=== PATIENT | female | born 1950 | race Caucasian/White ===

== ENCOUNTER 2023-11-24 08:03 | Inpatient (IN) | payer MEDICARE, SELFPAY ==
[2023-11-12 10:49] VITALS: BMI 27.4
[2023-11-12 11:59] LABS: % Basophils 0.6 % (0-2); % Eosinophils 2.2 % (0-6); % Immature Granulocytes 0.4 % (0-0.5); % Lymphocytes 22.6 % (20.5-51.1); % Monocytes 13.8 % (1.7-9.3); % Neutrophils 60.4 % (42.2-75.2); Absolute Eosinophils 0.2 10^3/uL (0-0.7); Absolute Lymphocytes 1.6 10^3/uL (1.2-3.4); Absolute Neutrophils 4.3 10^3/uL (1.4-6.5); Hematocrit 37.7 % (37.0-47.0); Hemoglobin 12.5 g/dL (12.0-16.0); Mean Corp Hgb Conc. 33.2 g/dL (33.0-37.0); Mean Corpuscular Hgb 24.7 pg (27.0-31.0); Mean Corpuscular Volume 74.5 fL (81.0-99.0); Mean Platelet Volume 10.3 fL (7.4-10.4); Nucleated Red Blood Cells % 0 %; Platelet Count 177 10^3/uL (130-400); Red Blood Cell Count 5.06 10^6/uL (4.20-5.40); Red Cell Dist. Width 17.2 % (11.5-14.5); White Blood Cell Count 7.2 10^3/uL (4.8-10.8)
[2023-11-12 12:09] LABS: INR 1.41; PT 17.3 Sec (11.4-14.6)
[2023-11-12 12:10] LABS: ALT (SGPT) 40 U/L (0-35); AST (SGOT) 49 U/L (14-36); Albumin 4.7 g/dl (3.5-5.0); Alkaline Phosphatase 71 U/L (38-126); Blood Urea Nitrogen 12 mg/dl (7-17); Calcium 9.8 mg/dl (8.4-10.2); Carbon Dioxide 26 mmol/L (22-30); Chloride 102 mmol/L (98-107); Estimated Creatinine Clearance 82 ml/min; Glucose 118 mg/dl (70-99); Potassium 4.1 mmol/L (3.5-5.1); Sodium 136 mmol/L (135-145); Total Bilirubin 0.6 mg/dl (0.2-1.3); Total Protein 7.4 g/dl (6.3-8.2); eGFR > 60.00
[2023-11-24] VITALS (12 sets, daily range): BP systolic 96–142; BP diastolic 54–110; BMI 29.3
[2023-11-24 11:22] LABS: ACT-LR - POC 285 Seconds (116-155)
[2023-11-24 11:32] LABS: Glucose - Point of Care 106 mg/dl (70-99)
[2023-11-24 11:46] LABS: ACT-LR - POC 281 Seconds (116-155)
--- NOTE | 2023-11-24 12:42 | WATCHMAN.MD ---
Addendum entered and electronically signed by Ron Morgan MD 11/24/23 17:20:
Note, a 31 mm device was used and placed, not a 24 mm device.
Original Note:
Watchman Implant
-
WATCHMAN LEFT ATRIAL APPENDAGE CLOSURE DEVICE REPORT
Date: November 24, 2023
Referring Litigation Docket Manager: Dr Boone Gonzalez
Primary Care Provider: Dr Steven Oates
History:
She has a history of paroxysmal atrial fibrillation, coronary angiography 03/04 showing no obstructive coronary disease and normal LV function, asymptomatic PVCs, type 2 diabetes mellitus, hyperlipidemia, benign essential hypertension,
arteriosclerosis of aorta, osteopenia, microcytic anemia, previously described tachycardia which she believes is supraventricular tachycardia, benign tremor, atypical chest discomfort, previously detected lung nodules.
She has an iron deficiency anemia for which she follows with hematology. Her hemoglobin has been as low as 8.5 with suspected GI source. Previous endoscopy, colonoscopy and capsule endoscopy procedure, which did not reveal any obvious causes. She
has significant hemorrhoids and has had hemorrhoidal bleeding previously. As well as rectal prolapse. She has required packed red blood cell transfusions on 2 occasions over the past 2 years. She tells me that her staff interpreter feels the likely
source of her recurrent bleeding is internal hemorrhoids.
Shared decision making for today's procedure involved the patient's referring hot wire glass tube cutter, Dr Gonzalez, the patient and her as well as myself and the rest of the Watchman team.
Watchman Team:
KIRAN: Camden Guan M.D.
Transseptal builder operator: Dr Radha Khan M.D.
Implanter: Dr Ron Morgan M.D.
Procedure: Watchman left atrial appendage closure.
The patient was placed under general anesthesia by anesthesia.
A KIRAN probe was placed.
A 10 Fr sheath was placed in the left femoral vein for ICE.
16 Fr sheath was placed via the right femoral vein to allow access for the watchman sheath
Heparin was administered to goal ACT 300-400 seconds. Fluid bolus was given.
Intracardiac ultrasound catheter was placed in the right atrium identifying the intraatrial septum for transseptal puncture.
Transseptal puncture was performed By Dr Khan. This entailed advancing a sheath with dilator into the superior vena cava and withdrawing both (monitoring intracardiac ultrasound, fluoroscopy and tip pressure) with the tip oriented toward the
atrial septum. The fossa ovalis was engaged (indicated by sudden displacement of the sheath tip as well as tenting of the fossa seen on intracardiac ultrasound). Left atrial access required a pass with the Brocken[place]rough needle extended. Left
atrial catheter position was confirmed by pressure monitoring as well as fluoroscopy. The sheath was advanced over the dilator and positioned in the left atrium.
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
There is no clear angiographic evidence of connection between those [address] Ron Morgan positioned and deployed the Watchman device.
The 14 Sammarinese watchman access system sheath double curve was substituted for the transeptal sheath. A 5 Sammarinese curved pigtail was then substituted for the guidewire through the watchman sheath to the ostium of the left atrial appendage. The 5
Sammarinese pigtail was advanced into the left atrial appendage and angiography was performed. This allowed additional measurements assessing left atrial appendage ostium size and ALCIRA morphology.
The pigtail catheter was removed from the access sheath. A 31 mm Watchman device was flushed and then placed into the watchman access sheath and advanced through the sheath. The Watchman was clamped into the sheath. The device was deployed into
the left atrial appendage.
The PASS criteria were met. The stability tug test was performed and passed. Angiography and transesophageal echocardiogram revealed no leaks nor jets. The position was confirmed on angiography and transesophageal echo and there were no
significant shoulders. Compression ranges from 15 % to 21 %.
After meeting the PASS release criteria the device was released into the left atrial appendage.
The watchman access sheath was then removed through the transseptal into the IVC. A figure 8 suture closure was performed at the site of the femoral venous puncture and the sheath as it was removed.
Impression:
Transeptal puncture by Dr Dr Khan.
SUCCESSFUL DEPLOYMENT OF 24 mm WATCHMAN LEFT ATRIAL APPENDAGE CLOSURE DEVICE by Dr Ron Morgan.
Recommended anticoagulation strategy for this specific patient is:
Full strength DOAC Eliquis 5 mg twice daily + 81 mg asa for 45 days followed by DAPT to complete 6 months, then asa 81 mg daily
Transesophageal echocardiogram at 6 weeks post procedure will be used to assess for any device related thrombus, assess for any leaks, and aid in the decision making regarding altering anticoagulation/antiplatelet recommendations.
At post procedure KIRAN leaks > 5mm are significant and require chronic full anticoagulation or consideration for leak closure. Sharmaine-device leaks between 3 and 5 mm may also carry an increased risk. These patients will need individualized risk
assessment and discussion with Watchman team. Leaks < 3 mm are generally considered non-significant. With leak of any size suggestion is to check KIRAN 12 mo out from implant.
Continue cardiovascular care with Dr. Gonzalez
cc:
Dr Boone Gonzalez
Dr Steven Oates
[2023-11-24] MEDS: ANESTHETIC LOZENGE 1 LOZENGE PO (14:25)
--- NOTE | 2023-11-24 14:35 | W.PN.UPDATE ---
Update Note
Progress Note Update
72 yo WF s/p Watchman device implant (same day). She has mild sore throat, no cp, sob, khari diet, voiding, amb w/o dizziness, b/l groins c/d/i no HT< soft, EKG SR. She will continue OAC Eliquis with addition of ASA 81mg daily. Hold Metformin 48 hours
post procedure. She will have f/u KIRAN in 45 days. ACtivity restrictions reviewed. She is for d/c home after 315pm.
Impression:
Transeptal puncture by Dr Dr Khan.
SUCCESSFUL DEPLOYMENT OF 24 mm WATCHMAN LEFT ATRIAL APPENDAGE CLOSURE DEVICE by Dr Ron Morgan.
Recommended anticoagulation strategy for this specific patient is:
Full strength DOAC Eliquis 5 mg twice daily + 81 mg asa for� 45 days followed by DAPT to complete 6 months, then asa 81 mg daily
Transesophageal echocardiogram at 6 weeks post procedure will be used to assess for any device related thrombus, assess for any leaks, and aid in the decision making regarding altering anticoagulation/antiplatelet recommendations.
At post procedure KIRAN leaks > 5mm are significant and require chronic full anticoagulation or consideration for leak closure.� Sharmaine-device leaks between 3 and 5 mm may also carry an increased risk. These patients will need individualized risk
assessment and discussion with Watchman team. Leaks < 3 mm are generally considered non-significant. With leak of any size suggestion is to check KIRAN 12 mo out from implant.
Continue cardiovascular care with Dr. Gonzalez
--- NOTE | 2023-11-26 14:23 | W.DS.TRANS ---
DC Summary - Gluing Machine Operator Electronic
-
Discharge Instructions:
Discharge Diagnosis/Procedures Watchman device implant
Diet Low Cholesterol,Diabetic, Carb Controlled
Driving Restrictions No driving for 24 hours
Others Tests A KIRAN has been scheduled for you at [facility] on 01/06/2024. You will receive
instructions in the mail and a call the day
prior to the KIRAN with arrival time.
Instructions:
Stand-Alone Forms: DC Instructions- Cath/EP Lab
Changes to Home Medications: Yes
Discharge Medications:
DC Medications w/original date entered in [email or web address]
apixaban 5 mg tablet (Eliquis) 5 mg PO BID Blood Clot Prevention/Tx 11/09/23
fenofibrate 160 mg tablet 160 mg PO HS High Cholesterol 11/09/23
insulin aspar prt-insulin aspart 100 unit/mL (70-30) subcutaneous soln (Novolog Mix 70-30 U-100 Insuln) 10 - 20 unit SC BID Diabetes 11/09/23
lisinopril 10 mg tablet 10 mg PO DAILY Blood Pressure 11/09/23
metformin 1,000 mg tablet 1,000 mg PO BID Diabetes 11/09/23
metoprolol succinate 100 mg tablet,extended release 24 hr 100 mg PO DAILY Blood Pressure 11/09/23
multivitamin 1 tab PO DAILY Supplement 11/09/23
rosuvastatin 10 mg tablet 10 mg PO HS High Cholesterol 11/09/23
verapamil 120 mg tablet,extended release 120 mg PO DAILY Blood Pressure 11/09/23
aspirin 81 mg tablet,delayed release 81 mg PO DAILY #1 tab 11/24/23
Home Medication Changes
NEW TO [facility]
Pending Results: No
== END 2023-11-24 15:30 | disposition home or self-care (01) | DRG 274 ==
LOC: CATH-IN 08:03
PROVIDERS: ADMITTING PHYSICIAN Internal Medicine Cardiovascular Disease; FAMILY PHYSICIAN Hospitalist
PROC: B24BZZ4 Ultrasonography of Heart with Aorta, Transesophageal (ICD-10-PCS; 2023-11-24)
PROC: 02L73DK Occlusion of Left Atrial Appendage with Intraluminal Device, Percutaneous Approach (ICD-10-PCS; 2023-11-24)
DX: I48.0 Paroxysmal atrial fibrillation (principal); Z00.6 Encounter for examination for normal comparison and control in clinical research program; I49.3 Ventricular premature depolarization; I10 Essential (primary) hypertension; D50.0 Iron deficiency anemia secondary to blood loss (chronic); E78.5 Hyperlipidemia, unspecified; R91.8 Other nonspecific abnormal finding of lung field; M85.80 Other specified disorders of bone density and structure, unspecified site; F10.11 Alcohol abuse, in remission; R74.01 Elevation of levels of liver transaminase levels; E11.40 Type 2 diabetes mellitus with diabetic neuropathy, unspecified; G47.33 Obstructive sleep apnea (adult) (pediatric); Z79.01 Long term (current) use of anticoagulants; Z87.891 Personal history of nicotine dependence; Z91.199 Patient's noncompliance with other medical treatment and regimen due to unspecified reason; Z79.4 Long term (current) use of insulin; Z79.84 Long term (current) use of oral hypoglycemic drugs
CPT/HCPCS: 33340; 36415; 76937; 80053; 82962; 85025; 85347; 85610; 86850; 86900; 86901; 87070; 93005; 93355; C1760; C1766; C1892; C1894; Q9967

== ENCOUNTER → 2024-01-07 07:11 | Day surgery (SDC) | payer MEDICARE, SELFPAY | LOC: CATH 07:11 | PROVIDERS: ATTENDING PHYSICIAN Nuclear Medicine Nuclear Cardiology; FAMILY PHYSICIAN Hospitalist; OTHER PHYSICIAN Internal Medicine Cardiovascular Disease | DX: I08.3 Combined rheumatic disorders of mitral, aortic and tricuspid valves (principal); I48.91 Unspecified atrial fibrillation; I10 Essential (primary) hypertension; E78.5 Hyperlipidemia, unspecified; G47.33 Obstructive sleep apnea (adult) (pediatric); E11.40 Type 2 diabetes mellitus with diabetic neuropathy, unspecified; Z87.891 Personal history of nicotine dependence; Z79.01 Long term (current) use of anticoagulants; Z79.4 Long term (current) use of insulin; Z79.84 Long term (current) use of oral hypoglycemic drugs; Z79.82 Long term (current) use of aspirin | CPT/HCPCS: 93312; 93320; 93325 ==